=== PATIENT | female | born 1980 | race Caucasian/White ===

== ENCOUNTER 2016-10-01 05:16 | Emergency (ER) | payer OTHER ==
--- NOTE | ~2016-10-01 | EKG ---
PATIENT: SAHE BRO UNIT #: [id number] Ventricular Rate: 81 BPM Atrial Rate: 81 BPM P-R Interval: 146 ms QRS Duration: 104 ms Q-T Interval: 380 ms QTC Calculation(Bezet): 441 ms P [place]: 20 degrees Calculated R [place]: 1 degrees Calculated T [place]: 17 degrees Diagnosis Line: Normal sinus rhythm Diagnosis Line: Normal ECG Diagnosis Line: When compared with ECG of 08-APR-2016 23:15, Diagnosis Line: No significant change was found Diagnosis Line: Confirmed by KAYLYNN AGUSTIN MD ([id number]) on Diagnosis Line: 10/04/2016 9:35:18 PM INTERPRETING MD: VAMSI MARCELINO
--- NOTE | ~2016-10-01 | CR72 ---
[facility] A Service of [facility] RADIOLOGY TEXT RESULTS PATIENT: SHAE BRO LOCATION: SED : 82 UNIT #: [id number] AGE: [address]: Gopi Mcclure DO SEX: F ORDER DR: [id number] [address] [address] [id number] E MR#: [id number] Acc #: [id number] NAME: SHAE BRO : 1980 SEX: F STUDY DATE/TIME: 10/01/2016 5:54 UNIT: SED ROOM: STUDY DESCRIPTION: CR Chest Single View Portable Attending Physician: Gopi Mcclure Ordering Physician: Gopi Mcclure Primary Care Physician: Xavier Fuentes M.D. MEDICAL IMAGING REPORT This report is preliminary unless electronic signature is present. EXAM Portable AP view of the chest COMPARISON April 08, 2016, April 02, 2016. INDICATION 36-year-old female with chest pain for 2 days. History of anxiety and hypertension. FINDINGS Exam is limited by exclusion of the superior most aspect of the pulmonary apices. Exam is also limited by apical lordotic positioning and patient body habitus. Given these factors, there is no evidence of acute airspace disease, pleural effusion or definite pneumothorax. Cardiomediastinal silhouette is within normal limits for low lung volumes and technical factors. IMPRESSION Exam is limited by minimal exclusion of the pulmonary apices limiting evaluation for very small pneumothorax. No acute radiographic abnormality of the chest is seen. There is normal heart size. Dictated by... Oc Pina M.D. THIS IS AN ELECTRONICALLY VERIFIED REPORT Oc Pina M.D. at 10/05/2016 10:26 PM DENISHA/ijm TD: 10/01/2016 07:02 [facility] A Service of [facility] RADIOLOGY TEXT RESULTS PATIENT: HSAE BRO LOCATION: SED : 82 UNIT #: [id number] AGE: [address]: Gopi Mcclure DO SEX: F ORDER DR: JOB #: [id number] MEDICAL IMAGING REPORT Page 1 of 1
[~2016-10-01 05:16] MED LIST: ALBUTEROL17 GM INH; ALBUTEROL20 ml INH; AMOXICILLIN500 M1 PO; ATIVAN PO; BACTROBAN15 GM TOP; CIPRO PO; DELTASONE20 MG PO; FAMOTIDINE PO; HYDROCORTISONE30 G2 EXT; IBUPROFEN; IBUPROFEN PO; IBUPROFEN800 MG PO; LACRI-LUBE S.O3.5 GM OP; MAGIC MOUTH WASH PO; MEDROL DOSEPAK4 MG PO; MOTRIN PO; NAPROXEN375 MG PO; NO MEDICATIONS; NORVASC PO; OMNICEF PO; PAXIL PO; PAXIL10 MG PO; PENICILLIN; PRENATAL1 TA1; PROMETHAZINE D118 ML PO; PYRIDIUM PO; RID150 ML; SUDAFED30 M1 PO; TAMIFLU75 M1 PO; TYLENOL #3 PO; VALCYCLOVIR PO; VICODIN 5/500 T1 TAB PO; VOLTAREN75 MG PO; WELLBUTRIN PO; WELLBUTRIN SR150 MG PO; WELLBUTRIN XL150 M1 PO; WELLBUTRIN XL150 MG PO; ZITHROMAX1 G/PKT PO; ZITHROMAX500 MG PO; ZOVIRAX PO
[2016-10-01 06:06] LABS: BASOPHIL# 0.1 X10e3 (0-0.3); EOSINOPHIL# 0.4 X10e3 (0-0.7); HEMATOCRIT 43.5 % (35.0-45.0); HEMOGLOBIN 15.2 gm/dL (12.0-16.0); LYMPHOCYTE# 2.9 X10e3 (1.0-3.5); MEAN CELL VOLUME 88.4 FL (83-96); MEAN CORPUSCULAR HEMOGLOBIN 30.8 PG (28-34); MEAN CORPUSCULAR HGB CONC 34.9 g/dL (30-36); MEAN PLATELET VOLUME 8.4 FL (6.5-11.5); MONOCYTE# 0.6 X10e3 (0-1.0); MONOCYTE% 6.1 % (3.0-12.0); NEUTROPHIL# 6.2 X10e3 (1.5-7.1); NEUTROPHIL% 60.9 % (40-75); PLATELET COUNT 241 X10e3 (140-420); RED BLOOD COUNT 4.92 X10e (3.90-5.30); WHITE BLOOD COUNT 10.2 X10e3 (4.0-10.5)
[2016-10-01 06:07] LABS: DIFF IND NO
[2016-10-01 06:20] LABS: POC - CKMB <1.0 ng/mL (0.0-7.9); POC - TROPONIN <0.05 ng/mL (<=0.05)
[2016-10-01 06:23] LABS: PROTHROMBIN TIME (PATIENT) 11.6 SECONDS (9.5-12.4)
[2016-10-01 06:28] LABS: ALBUMIN SERUM 3.3 g/dL (3.5-5.0); BILIRUBIN, DIRECT 0.1 mg/dL (0.0-0.2); BILIRUBIN,INDIRECT 0.3 mg/dL (0.0-0.9); BILIRUBIN,TOTAL 0.4 mg/dL (0.2-2.0); CALCIUM SERUM 8.8 mg/dL (8.4-10.2); CREATININE SERUM 0.7 mg/dL (0.6-1.4); PROTEIN TOTAL SERUM 6.9 g/dL (6.0-8.3)
[2016-10-01 06:29] LABS: POTASSIUM 2.8 mmol/L (3.5-5.1)
[2016-10-01 06:31] LABS: PARTIAL THROMBOPLASTIN TIME 24.4 SECONDS (25.6-38.1)
== END 2016-10-01 06:38 | disposition home or self-care (01) ==
LOC: SED 05:16
PROVIDERS: Emergency Medicine
DX: F41.9 Anxiety disorder, unspecified (principal); E87.6 Hypokalemia; I10 Essential (primary) hypertension; F43.10 Post-traumatic stress disorder, unspecified; Z79.899 Other long term (current) drug therapy
CPT/HCPCS: 36415; 71010; 80048; 80076; 82553; 84484; 85025; 85610; 85730; 93005; 99283

== ENCOUNTER 2016-10-06 22:29 | Emergency (ER) | payer OTHER ==
--- NOTE | ~2016-10-06 | EKG ---
PATIENT: SHAE BRO UNIT #: [id number] Ventricular Rate: 82 BPM Atrial Rate: 82 BPM P-R Interval: 138 ms QRS Duration: 94 ms Q-T Interval: 378 ms QTC Calculation(Bezet): 441 ms P [place]: 25 degrees Calculated R [place]: 9 degrees Calculated T [place]: 40 degrees Diagnosis Line: Normal sinus rhythm with sinus arrhythmia Diagnosis Line: Normal ECG Diagnosis Line: When compared with ECG of 01-OCT-2016 05:19, Diagnosis Line: No significant change was found Diagnosis Line: Confirmed by KAYLYNN AGUSTIN MD ([id number]) on Diagnosis Line: 10/07/2016 7:12:39 PM INTERPRETING MD: VAMSI MARCELINO
[2016-10-07 01:26] LABS: URINE SOURCE CLEAN CATCH
[2016-10-07 01:28] LABS: BASOPHIL# 0.1 X10e3 (0-0.3); BASOPHIL% 0.9 % (0-2.5); DIFF IND NO; EOSINOPHIL# 0.3 X10e3 (0-0.7); EOSINOPHIL% 3.2 % (0.0-7.0); HEMOGLOBIN 15.7 gm/dL (12.0-16.0); LYMPHOCYTE# 2.6 X10e3 (1.0-3.5); LYMPHOCYTE% 24.8 % (17.0-45.0); MEAN CELL VOLUME 89.2 FL (83-96); MEAN CORPUSCULAR HEMOGLOBIN 31.1 PG (28-34); MEAN CORPUSCULAR HGB CONC 34.9 g/dL (30-36); MEAN PLATELET VOLUME 8.9 FL (6.5-11.5); MONOCYTE# 0.7 X10e3 (0-1.0); MONOCYTE% 6.5 % (3.0-12.0); NEUTROPHIL# 6.8 X10e3 (1.5-7.1); NEUTROPHIL% 64.6 % (40-75); PLATELET COUNT 260 X10e3 (140-420); RED BLOOD COUNT 5.04 X10e (3.90-5.30); RED CELL DISTRIBUTION WIDTH 13.1 % (11.0-15.5); URINE APPEARANCE CLEAR; URINE BILIRUBIN NEG (NEG); URINE BLOOD NEG (NEG); URINE COLOR YELLOW; URINE GLUCOSE NEG (NORM); URINE KETONE NEG (NEG); URINE LEUKOCYTE ESTERASE NEG (NEG); URINE NITRATE NEG (NEG); URINE PROTEIN NEG (NEG); WHITE BLOOD COUNT 10.6 X10e3 (4.0-10.5)
[2016-10-07 01:29] LABS: MICRO INDICATED? NO
[2016-10-07 01:39] LABS: CALCIUM SERUM 8.8 mg/dL (8.4-10.2); CREATININE SERUM 0.8 mg/dL (0.6-1.4); GLOM FILT RATE Estimated 96.3 mL/min (>60); POTASSIUM 4.9 mmol/L (3.5-5.1)
[2016-10-07 01:42] LABS: POC - CKMB <1.0 ng/mL (0.0-7.9); POC - TROPONIN <0.05 ng/mL (<=0.05)
== END 2016-10-07 02:17 | disposition home or self-care (01) ==
LOC: SED 22:29
PROVIDERS: Emergency Medicine
DX: R55 Syncope and collapse (principal); F41.9 Anxiety disorder, unspecified; F17.210 Nicotine dependence, cigarettes, uncomplicated; Z79.899 Other long term (current) drug therapy
CPT/HCPCS: 36415; 80048; 81003; 82553; 84484; 84703; 85025; 93005; 99284

== ENCOUNTER 2016-12-19 14:29 | Emergency (ER) | payer OTHER ==
[~2016-12-19] VITALS: Ht 175.3 cm; Wt 136.1 kg
--- NOTE | ~2016-12-19 | CR138 ---
[facility]. [facility] A Service of [facility] & [facility] RADIOLOGY TEXT RESULTS PATIENT: SHAE BRO LOCATION: SED : 82 UNIT #: [id number] AGE: [address]: KAYLYNN AGUILAR SEX: F ORDER DR: [id number] [place] [id number] E MR#: [id number] Acc #: [id number] NAME: SHAE BRO : 1980 SEX: F STUDY DATE/TIME: 12/19/2016 14:49 UNIT: SED ROOM: STUDY DESCRIPTION: CR Hand 2 Views Lt Attending Physician: Kaylynn Aguilar A.P.R.N. Ordering Physician: Kaylynn Aguilar A.P.R.N. Primary Care Physician: Xavier Fuentes M.D. MEDICAL IMAGING REPORT This report is preliminary unless electronic signature is present. EXAM Left hand 2 views HISTORY Second digit laceration today. Pain. FINDINGS Two views of the left hand demonstrate no fracture or opaque soft tissue foreign body. No joint space narrowing or dislocation. Mild soft tissue swelling proximal second digit. Dictated by... Cem Moran M.D. THIS IS AN ELECTRONICALLY VERIFIED REPORT Cem Moran M.D. at 12/20/2016 11:15 PM HARPAL/jim TD: 12/20/2016 07:14 JOB #: [id number] MEDICAL IMAGING REPORT Page 1 of 1
== END 2016-12-19 16:17 | disposition home or self-care (01) ==
LOC: SED 14:29
DX: S61.211A Laceration without foreign body of left index finger without damage to nail, initial encounter (principal); F17.200 Nicotine dependence, unspecified, uncomplicated; W45.8XXA Other foreign body or object entering through skin, initial encounter; Y92.009 Unspecified place in unspecified non-institutional (private) residence as the place of occurrence of the external cause
CPT/HCPCS: 29130; 73120; 99283